=== PATIENT | male | born 1980 | race Caucasian/White ===

== ENCOUNTER → 2017-09-16 | Outpatient (CLI) | payer BC | LOC: GMAB 11:11 | PROVIDERS: ATTEND Family Medicine | DX: Z00.01 Encounter for general adult medical examination with abnormal findings (principal) ==

== ENCOUNTER → 2018-12-01 | Outpatient (CLI) | payer BC | LOC: YCFC.O 16:08 | PROVIDERS: ATTEND Family Medicine | DX: L08.9 Local infection of the skin and subcutaneous tissue, unspecified (principal) ==

== ENCOUNTER → 2019-04-20 | Outpatient (CLI) | payer BC | LOC: YCFC.O 11:04 | PROVIDERS: ATTEND Nurse Practitioner | DX: R19.7 Diarrhea, unspecified (principal) ==

== ENCOUNTER → 2019-04-21 | Outpatient (CLI) | payer BC ==
--- NOTE | 2019-04-21 15:44 | RAD ---
EXAM: XR Abdomen, 2 Views CLINICAL HISTORY: The patient is 39 years old and is Male; ABD PAIN TECHNIQUE: Frontal view of the abdomen/pelvis with upright view of the abdomen. COMPARISON: No relevant prior studies available. FINDINGS: INTRAPERITONEAL SPACE: No free air. GASTROINTESTINAL TRACT: No dilated loops of bowel are seen. Air is noted throughout colon. Distal air is present. No abnormal palpitations or soft tissue masses are noted. BONES/JOINTS: Unremarkable. IMPRESSION: Nonobstructive, nonspecific bowel gas pattern. Electronically signed by: Brianna Barrera MD 04/21/2019 3:43 PM [employer]
== END ==
LOC: LAB.O 14:37
PROVIDERS: ATTEND Physician Assistant
DX: R10.84 Generalized abdominal pain (principal)